=== PATIENT | female | born 1965 | race Caucasian/White ===

== ENCOUNTER 2017-06-06 18:34 | Emergency (ER) | payer SELFPAY ==
[~2017-06-06] VITALS: Ht 160 cm; Wt 80.7 kg
--- NOTE | 2017-06-06 19:25 | NUR ---
DR FIELD INTO EVAL PATIENT
--- NOTE | 2017-06-06 21:06 | NUR ---
Patient discharged to home in stable conditon. Written and verbal after care instructions given. Patient verbalizes understanding of instructions. PATIENT LEFT WITH STABLE GAIT.
[2017-06-06 21:08] VITALS: BP 137/82
== END 2017-06-06 21:11 | disposition home or self-care (01) ==
LOC: ER 18:40
DX: S80.212A Abrasion, left knee, initial encounter (principal); S20.319A Abrasion of unspecified front wall of thorax, initial encounter; Z88.0 Allergy status to penicillin; Z85.3 Personal history of malignant neoplasm of breast; V49.9XXA Car occupant (driver) (passenger) injured in unspecified traffic accident, initial encounter; Y93.89 Activity, other specified; Y92.410 Unspecified street and highway as the place of occurrence of the external cause; Y99.9 Unspecified external cause status
CPT/HCPCS: 71020; A4663; Q0162

== ENCOUNTER 2018-06-11 10:15 | Emergency (ER) | payer BC ==
[~2018-06-11] VITALS: Ht 160 cm; Wt 81.2 kg
[2018-06-11] MEDS ORDERED: ASPIRIN 325 MG TABLET PO ONE (10:30)
[2018-06-11] MEDS ORDERED: ESCI10TA PO (10:31)
[2018-06-11] MEDS ORDERED: HORMONE BLOCKER PO (10:31)
[2018-06-11] MEDS ORDERED: ROSU10TA PO (10:31)
[2018-06-11] MEDS ORDERED: OMEP20CA10 PO (10:31)
[2018-06-11] MEDS ORDERED: ASPIRIN 325 MG TABLET ONE (10:35)
[2018-06-11 10:57] LABS: BASOPHILS # (AUTO) 0.1 K/uL (0.0-8.0); BASOPHILS % (AUTO) 0.8 % (0.0-2.0); EOSINOPHILS # (AUTO) 0.2 K/uL (0.0-0.7); EOSINOPHILS % (AUTO) 2.2 % (0.0-7.0); HEMATOCRIT 38.8 % (31.2-41.9); HEMOGLOBIN 12.7 g/dL (10.9-14.3); LYMPHOCYTES # (AUTO) 2.4 K/uL (20.0-40.0); LYMPHOCYTES % (AUTO) 31.4 % (20.5-51.5); MEAN CORPUSCULAR HGB CONC 33 g/dL (32.3-35.6); MEAN CORPUSCULAR VOLUME 79.9 fL (75.5-95.3); MONOCYTES # (AUTO) 0.5 K/uL (2.0-10.0); MONOCYTES % (AUTO) 5.8 % (0.0-11.0); NEUTROPHILS # (AUTO) 4.6 K/uL (1.8-8.9); NEUTROPHILS % (AUTO) 59.8 % (38.5-71.5); PLATELET COUNT (AUTO) 253 K/uL (179-408); RED BLOOD CELL COUNT(AUTO) 4.86 MIL/uL (3.63-4.92); WHITE BLOOD COUNT (AUTO) 7.8 K/uL (3.8-11.8)
[2018-06-11 11:04] LABS: LIPASE 271 U/L (73-393)
[2018-06-11 11:05] LABS: CARBON DIOXIDE 23 mmol/L (21-32); CHLORIDE 105 mmol/L (98-107); CREATININE 0.8 mg/dL (0.6-1.3); GLUCOSE 125 mg/dL (74-106); POTASSIUM 4.3 mmol/L (3.5-5.1); UREA NITROGEN, BLOOD 5 mg/dL (7-18)
[2018-06-11 11:17] LABS: ALANINE AMINOTRANSFERASE 48 U/L (14-59); ALKALINE PHOSPHATASE 89 U/L (50-136); ASPARTATE AMINOTRANSFERASE 24 U/L (15-37); BILIRUBIN,DIRECT < 0.1 mg/dL (0.0-0.2); BILIRUBIN,TOTAL 0.2 mg/dL (0.2-1.0); TOTAL PROTEIN, SERUM 7.4 g/dL (6.4-8.2)
--- NOTE | 2018-06-11 11:37 | NUR ---
Patient discharged to home in stable conditon. Written and verbal after care instructions given. Patient verbalizes understanding of instructions.pt walks in steady gait. cp subsided. pt jordan alford. pt accompanied by son.
[2018-06-11 11:38] VITALS: BP 134/89
== END 2018-06-11 11:40 | disposition home or self-care (01) ==
LOC: ER 10:15
DX: K80.20 Calculus of gallbladder without cholecystitis without obstruction (principal); K21.9 Gastro-esophageal reflux disease without esophagitis; E78.5 Hyperlipidemia, unspecified; Z88.0 Allergy status to penicillin
CPT/HCPCS: 36415; 71045; 76705; 80048; 80076; 83690; 83880; 84484; 85025; 85730; 93005; 99285; A4663; 70030-TC

== ENCOUNTER 2018-07-22 00:08 | Emergency (ER) | payer BC ==
[~2018-07-22] VITALS: Ht 160 cm; Wt 78.0 kg
[~2018-07-22 00:08] MED LIST: ESCI10TA PO; HORMONE BLOCKER PO; OMEP20CA10 PO; ROSU10TA PO
[2018-07-22] MEDS ORDERED: SULFAMETH/TRIMETH 800/160 MG TABLET ONE (00:39)
[2018-07-22] MEDS ORDERED: DEXAMETHASONE SOD PHOSPHATE 10 MG INJ ONE (00:40)
[2018-07-22] MEDS ORDERED: DEXAMETHASONE SOD PHOSPHATE 4 MG INJ IM ONE (00:45)
[2018-07-22] MEDS ORDERED: SULFAMETH/TRIMETH 800/160 MG TABLET PO ONE (00:45)
--- NOTE | 2018-07-22 00:45 | NUR ---
C/O ITCHING TO BODY STARTED TONIGHT. DENIES ANY FEVER. AREAS OF SWELLING TO BACK, RT. ARM & BOTH LEGS NOTED THAT APPEARS LIKE INSECT BITES. SITE RED, SWOLLEN & TTT. STATES DOES NOT HAVE PAIN,JUST ITCHING.
[2018-07-22] MEDS ORDERED: diphenhydrAMINE 25 MG CAP PO ONE ×2 (00:56→00:58)
[2018-07-22] MEDS ORDERED: diphenhydrAMINE 50 MG CAPSULE PO ONE (01:00)
--- NOTE | 2018-07-22 01:00 | NUR ---
READY FIR DISCHARGE & NOW PT. STATES FEELS ITCHING & BURNING TO VAGINA. PT. ASKING IF IT WAS THE DECADRON SHOT THAT SHE IS REACTING TO. DENIES ANY SOB,SPEAKING IN FULL SENTENCES. DR. DOTY NOTIFIED. STATES BENADRYL THAT SHE JUST TOOK WI;L HELP W/ THAT & STATES THAT IT WAS NOT THE SHOT. TEACHING REGARDING [facility] TO HELP W/ ITCHING. INFORMED HER THAT IF SHE WAS NOT GETTING BETTER, SHE CAN RETURN TO THE ER. PT. ABLE TO UNDERSTAND.
--- NOTE | 2018-07-22 01:10 | NUR ---
DISPO HOME W/POST CARE, HOME CARE, FOLLOW UP CARE INSTRUCTIONS. AMBULATING W/ STEADY GAIT. NO PAIN/DISTRESS NOTED.
[2018-07-22 01:18] VITALS: BP 129/79
== END 2018-07-22 01:20 | disposition home or self-care (01) ==
LOC: ER 00:12
DX: B95.8 Unspecified staphylococcus as the cause of diseases classified elsewhere (principal); E78.00 Pure hypercholesterolemia, unspecified; K21.9 Gastro-esophageal reflux disease without esophagitis; Z88.0 Allergy status to penicillin
CPT/HCPCS: 96372; 99283; J1100; Q0163; A4663